=== PATIENT | female | born 1955 | race Caucasian/White ===

== ENCOUNTER 2016-09-14 09:53 | Outpatient (RCR) | payer BC ==
[2016-09-14 10:13] LABS: MEAN CORPUSCULAR HEMOGLOBIN 27.6 PG (26.0-34.0); MEAN CORPUSCULAR HGB CONC 33.3 g/dL (31.0-37.0); MEAN CORPUSCULAR VOLUME 83 FL (80-100); MEAN PLATELET VOLUME 9.4 FL (6.0-9.5); PLATELET COUNT 225 10^3uL (150-450); WHITE BLOOD COUNT 5.52 10^3uL (4.0-11.0)
[2016-09-14 10:44] LABS: BAND NEUTROPHILS % 1 % (0-6); EOSINOPHILS % 2 % (0-4); LYMPHOCYTES # 1.2 #; MONOCYTES # 0.4 #; MONOCYTES % 8 % (3-11); RBC MORPH NORMAL (NORMAL); SEGMENTED NEUTROPHILS % 68 % (51-67); TOTAL CELLS COUNTED 100
[2016-09-14 10:49] LABS: ALBUMIN 4.4 g/dL (3.4-5.0); ANION GAP 16.2 MEQ/L (3-15); CALCULATED IONIZED CALCIUM 4.5 mg/dL (3.8-4.6); MAGNESIUM* 2.1 mg/dL (1.6-2.3); PHOSPHORUS 4.5 mg/dL (2.4-4.9); TOTAL PROTEIN 6.4 g/dL (6.4-8.5)
[2016-09-27 10:30] LABS: MEAN CORPUSCULAR HEMOGLOBIN 27.3 PG (26.0-34.0); MEAN CORPUSCULAR HGB CONC 32.8 g/dL (31.0-37.0); MEAN CORPUSCULAR VOLUME 83 FL (80-100); MEAN PLATELET VOLUME 9.5 FL (6.0-9.5); PLATELET COUNT 275 10^3uL (150-450); WHITE BLOOD COUNT 5.74 10^3uL (4.0-11.0)
[2016-09-27 10:35] LABS: ALBUMIN 4.4 g/dL (3.4-5.0); ANION GAP 17.6 MEQ/L (3-15); CALCULATED IONIZED CALCIUM 4.6 mg/dL (3.8-4.6); MAGNESIUM* 2.1 mg/dL (1.6-2.3); PHOSPHORUS 3.7 mg/dL (2.4-4.9); TOTAL PROTEIN 6.6 g/dL (6.4-8.5)
[2016-09-27 11:08] LABS: BAND NEUTROPHILS % 2 % (0-6); EOSINOPHILS % 1 % (0-4); LYMPHOCYTES # 1.4 #; MONOCYTES # 0.6 #; MONOCYTES % 12 % (3-11); RBC MORPH NORMAL (NORMAL); SEGMENTED NEUTROPHILS % 60 % (51-67); TOTAL CELLS COUNTED 100
[2016-10-18 10:03] LABS: MEAN CORPUSCULAR HGB CONC 33.1 g/dL (31.0-37.0); MEAN CORPUSCULAR VOLUME 84 FL (80-100); MEAN PLATELET VOLUME 8.2 FL (6.0-9.5); PLATELET COUNT 417 10^3uL (150-450); WHITE BLOOD COUNT 5.16 10^3uL (4.0-11.0)
[2016-10-18 10:13] LABS: ALBUMIN 3.2 g/dL (3.4-5.0); ANION GAP 13.8 MEQ/L (3-15); CALCULATED IONIZED CALCIUM 4.4 mg/dL (3.8-4.6); PHOSPHORUS 4.2 mg/dL (2.4-4.9); TOTAL PROTEIN 5.8 g/dL (6.4-8.5)
[2016-10-18 10:36] LABS: BAND NEUTROPHILS % 3 % (0-6); MONOCYTES # 0.5 #; MONOCYTES % 10 % (3-11); SEGMENTED NEUTROPHILS % 44 % (51-67)
[2016-10-18 10:37] LABS: EOSINOPHILS % 11 % (0-4); LYMPHOCYTES # 1.6 #; RBC MORPH NORMAL (NORMAL); TOTAL CELLS COUNTED 100
[2016-11-01 10:13] LABS: MEAN CORPUSCULAR HEMOGLOBIN 27.9 PG (26.0-34.0); MEAN CORPUSCULAR HGB CONC 34.6 g/dL (31.0-37.0); MEAN CORPUSCULAR VOLUME 81 FL (80-100); MEAN PLATELET VOLUME 8.2 FL (6.0-9.5); PLATELET COUNT 441 10^3uL (150-450); WHITE BLOOD COUNT 8.57 10^3uL (4.0-11.0)
[2016-11-01 10:22] LABS: BAND NEUTROPHILS % 6 % (0-6); EOSINOPHILS % 0 % (0-4); MONOCYTES # 0.2 #; MONOCYTES % 2 % (3-11); RBC MORPH NORMAL (NORMAL); SEGMENTED NEUTROPHILS % 69 % (51-67); TOTAL CELLS COUNTED 100
[2016-11-01 10:32] LABS: ALBUMIN 2.9 g/dL (3.4-5.0); CALCULATED IONIZED CALCIUM 4.4 mg/dL (3.8-4.6); MAGNESIUM* 1.9 mg/dL (1.6-2.3); PHOSPHORUS 4.1 mg/dL (2.4-4.9); TOTAL PROTEIN 5.7 g/dL (6.4-8.5)
[2016-11-22 11:22] LABS: ALBUMIN 2.1 g/dL (3.4-5.0); ANION GAP 7.6 MEQ/L (3-15); TOTAL PROTEIN 5.1 g/dL (6.4-8.5)
[2016-11-29 09:49] LABS: ALBUMIN 2.4 g/dL (3.4-5.0); ANION GAP 11.2 MEQ/L (3-15); CALCULATED IONIZED CALCIUM 4.2 mg/dL (3.8-4.6); TOTAL PROTEIN 5.2 g/dL (6.4-8.5)
[2016-12-06 10:08] LABS: MEAN CORPUSCULAR HEMOGLOBIN 27.8 PG (26.0-34.0); MEAN CORPUSCULAR HGB CONC 32.4 g/dL (31.0-37.0); MEAN CORPUSCULAR VOLUME 86 FL (80-100); MEAN PLATELET VOLUME 7.9 FL (6.0-9.5); PLATELET COUNT 415 10^3uL (150-450); WHITE BLOOD COUNT 6.06 10^3uL (4.0-11.0)
[2016-12-06 10:23] LABS: ANISOCYTOSIS SLIGHT; BAND NEUTROPHILS % 1 % (0-6); EOSINOPHILS % 2 % (0-4); LYMPHOCYTES # 1.3 #; MONOCYTES # 0.5 #; MONOCYTES % 8 % (3-11); RBC MORPH SEE REFERENCE (NORMAL); SEGMENTED NEUTROPHILS % 66 % (51-67); TOTAL CELLS COUNTED 100
[2016-12-06 10:40] LABS: PHOSPHORUS 3.9 mg/dL (2.4-4.9); TOTAL PROTEIN 5.2 g/dL (6.4-8.5)
[2016-12-06 11:02] LABS: ALBUMIN 2.5 g/dL (3.4-5.0); ANION GAP 10.1 MEQ/L (3-15); CALCULATED IONIZED CALCIUM 4.3 mg/dL (3.8-4.6); MAGNESIUM* 1.6 mg/dL (1.6-2.3)
== END 2016-12-13 | disposition home or self-care (01) ==
LOC: LAB 09:53 → EDSTATUS 09:58
PROVIDERS: ATTEND Internal Medicine Hematology & Oncology
DX: C43.4 Malignant melanoma of scalp and neck (principal)
CPT/HCPCS: 36415; 80053; 82533; 83615; 83735; 84100; 84439; 84443; 84481; 85007; 85027

== ENCOUNTER 2016-11-07 13:04 | Emergency (ER) | payer BC ==
[~2016-11-07] VITALS: Ht 157.5 cm; Wt 59.0 kg
[2016-11-07] MEDS ORDERED: ONDANSETRON 2 MG/ML (Z0FRAN) 2 ML VIAL IV ONE (13:45)
[2016-11-07] MEDS ORDERED: SODIUM CHLORIDE FLUSH 3 ML SYR IV ONE (13:45)
[2016-11-07] MEDS: SODIUM CHLORIDE FLUSH 10 ML SYR IV PRN ×2 (14:10→14:14)
[2016-11-07 15:01] LABS: MEAN CORPUSCULAR HEMOGLOBIN 28.3 PG (26.0-34.0); MEAN CORPUSCULAR VOLUME 81 FL (80-100); MEAN PLATELET VOLUME 8.5 FL (6.0-9.5); PLATELET COUNT 387 10^3uL (150-450); WHITE BLOOD COUNT 9.84 10^3uL (4.0-11.0)
[2016-11-07 15:12] LABS: ALBUMIN 2.5 g/dL (3.4-5.0); ANION GAP 14.7 MEQ/L (3-15); CALCULATED IONIZED CALCIUM 4.2 mg/dL (3.8-4.6); TOTAL PROTEIN 5.3 g/dL (6.4-8.5)
[2016-11-07 15:18] VITALS: BP 102/72
[2016-11-07 15:32] LABS: BAND NEUTROPHILS % 20 % (0-6); EOSINOPHILS % 2 % (0-4); LYMPHOCYTES # 0.8 #; MONOCYTES # 0.8 #; MONOCYTES % 9 % (3-11); RBC MORPH NORMAL (NORMAL); SEGMENTED NEUTROPHILS % 61 % (51-67); TOTAL CELLS COUNTED 100
== END 2016-11-07 15:40 | disposition home or self-care (01) ==
LOC: ED 13:07
DX: E86.0 Dehydration (principal)
CPT/HCPCS: 36415; 80053; 82150; 83690; 85025; 86140; 96361; 96374; 99284; J2405; J7030; 99283

== ENCOUNTER → 2016-11-23 | Outpatient (CLI) | payer BC | LOC: RAD 16:47 | PROVIDERS: ATTEND Internal Medicine Hematology & Oncology | DX: I82.403 Acute embolism and thrombosis of unspecified deep veins of lower extremity, bilateral (principal) | CPT/HCPCS: 93970 ==

== ENCOUNTER → 2016-11-23 | Outpatient (CLI) | payer BC ==
[~2016-11-23] VITALS: Ht 157.5 cm; Wt 57.8 kg
[~2016-11-23] MED LIST: ENOXAPARIN 60 MG/0.6 ML (LOVENOX) SYR SC ONE; ENOXAPARIN 60 MG/0.6 ML (LOVENOX) SYR SC SCH
[2016-11-23 19:22] VITALS: BP 113/82
== END ==
LOC: EUOP 18:46
PROVIDERS: ATTEND Internal Medicine
DX: I82.403 Acute embolism and thrombosis of unspecified deep veins of lower extremity, bilateral (principal)
CPT/HCPCS: 96372; J1650

== ENCOUNTER → 2016-11-24 | Outpatient (CLI) | payer BC ==
[~2016-11-24] VITALS: Ht 157.5 cm; Wt 57.6 kg
[~2016-11-24] MED LIST changes: -ENOXAPARIN 60 MG/0.6 ML (LOVENOX) SYR SC SCH
[2016-11-24 06:50] VITALS: BP 105/76
== END ==
LOC: EUOP 06:42
PROVIDERS: ATTEND Internal Medicine Hematology & Oncology
DX: I82.403 Acute embolism and thrombosis of unspecified deep veins of lower extremity, bilateral (principal)
CPT/HCPCS: 96372; J1650

== ENCOUNTER 2017-01-17 09:48 | Outpatient (RCR) | payer BC ==
[~2017-01-17 09:48] MED LIST changes: -ENOXAPARIN 60 MG/0.6 ML (LOVENOX) SYR SC ONE; +LEVO88TA4 PO; +LISI1TAB6 PO; +LOVA20TA2 PO; +METF500T4 PO; +ONDA4TAB8 PO; +SCOP1PAT10 TD
[2017-01-17 10:00] LABS: MEAN CORPUSCULAR HEMOGLOBIN 27.5 PG (26.0-34.0); MEAN CORPUSCULAR HGB CONC 32.4 g/dL (31.0-37.0); MEAN CORPUSCULAR VOLUME 85 FL (80-100); MEAN PLATELET VOLUME 9.2 FL (6.0-9.5); PLATELET COUNT 268 10^3uL (150-450); WHITE BLOOD COUNT 4.77 10^3uL (4.0-11.0)
[2017-01-17 10:10] LABS: ALBUMIN 4.2 g/dL (3.4-5.0); ANION GAP 12.2 MEQ/L (3-15); CALCULATED IONIZED CALCIUM 4.1 mg/dL (3.8-4.6); TOTAL PROTEIN 7.4 g/dL (6.4-8.5)
[2017-01-17 10:27] LABS: BAND NEUTROPHILS % 1 % (0-6); EOSINOPHILS % 1 % (0-4); LYMPHOCYTES # 0.9 #; MONOCYTES # 0.4 #; MONOCYTES % 9 % (3-11); RBC MORPH NORMAL (NORMAL); SEGMENTED NEUTROPHILS % 70 % (51-67); TOTAL CELLS COUNTED 100
[2017-01-24 11:00] LABS: ALBUMIN 4.5 g/dL (3.4-5.0); ANION GAP 15.7 MEQ/L (3-15); CALCULATED IONIZED CALCIUM 4.1 mg/dL (3.8-4.6); TOTAL PROTEIN 7.7 g/dL (6.4-8.5)
== END 2017-02-23 19:18 | disposition home or self-care (01) ==
LOC: LAB 09:48
PROVIDERS: ATTEND Internal Medicine Hematology & Oncology
DX: C43.4 Malignant melanoma of scalp and neck (principal)
CPT/HCPCS: 36415; 80053; 83615; 83735; 84100; 84443; 85007; 85027

== ENCOUNTER → 2017-01-20 | Outpatient (CLI) | payer BC ==
--- NOTE | 2017-01-20 12:21 | Diagnostic Imaging Report ---
PROCEDURE: CT of the abdomen with and without contrast and CT of the pelvis with contrast. TECHNIQUE: Precontrast acquisitions were acquired through the abdomen. Multiple contiguous axial images were obtained through the abdomen and pelvis after administration of intravenous contrast. INDICATION: Cutaneous melanoma. AVAILABLE COMPARISONS: None. FINDINGS: Images through the thoracic base showed a 5 mm pleural-based nodule in the left lower lobe. In the right lower lobe, a 5 mm nodule is present. In the left lung anteriorly and laterally, a 5 mm nodule is present. The liver is negative for any mass lesion. Intrahepatic bile ducts are mildly prominent. There is no extrahepatic bile duct dilatation. Three large gallstones are present, largest 3 cm. In addition, multiple tiny stones are present. Gallbladder wall is not significantly thickened. Adrenals are negative. The spleen is negative. The kidneys are negative. There is no adenopathy in the gastrohepatic or gastrosplenic ligament. The periportal lymph nodes are negative. Retroperitoneal and pelvic lymph nodes are negative. There is one right inguinal lymph node which is 1.6 x 1 cm. A 1.1 cm right common femoral lymph node is present. Uterus is present vertically oriented and retroverted. Urinary bladder is negative. No osteolytic or osteoblastic lesion is identified. IMPRESSION: 1. Cholecystolithiasis. One mildly prominent right inguinal lymph node with a slightly enlarged right common femoral lymph node. 2. A few basilar lung nodules are present. CT thorax would be helpful. Dictated by: Dictated on workstation # [id number]
== END ==
LOC: RAD 10:34
PROVIDERS: ATTEND Internal Medicine Hematology & Oncology
DX: C43.4 Malignant melanoma of scalp and neck (principal); K80.20 Calculus of gallbladder without cholecystitis without obstruction
CPT/HCPCS: 74178; Q9967